=== PATIENT | female | born 1955 | race Caucasian/White ===

== ENCOUNTER 2024-06-17 06:02 | Day surgery (SDC) | payer BC ==
[~2024-06-17] VITALS: Ht 149.9 cm; Wt 43.8 kg
[~2024-06-17 06:02] MED LIST: ERGO500029 PO; LISI10TA22 PO; PHENYLEPHRINE 10% OPHTH SOL 5ML OS PRN; SYNT75TA PO
[2024-06-17] MEDS ORDERED: MIDAZOLAM INJ 2MG/2ML VIAL As Ordered ONE (06:52)
[2024-06-17] MEDS ORDERED: fentaNYL 100 MCG/2 ML INJECTION As Ordered ONE (06:52)
[2024-06-17] MEDS: PHENYLEPHRINE 2.5% OPHTH SOL 2ML OS SCH (07:50)
[2024-06-17] MEDS: TROPICAMIDE 1% OPHTH SOLN 15ML OS SCH (07:50)
[2024-06-17] MEDS: LIDOCAINE 3.5 % 1ML OPHTH TOPICAL GEL OU ONE (07:50)
[2024-06-17] MEDS: ATROPINE SULFATE 1% OPHTH SOLN 2ML BTL OS SCH (07:50)
[2024-06-17] MEDS: OFLOXACIN 0.3 % (OCUFLOX) OPTH SOL 5ML OS ONE (07:50)
[2024-06-17] MEDS: LIDOCAINE 1% SDV 5ML VIAL As Ordered ONE (08:10)
[2024-06-17] MEDS: BSS IRRIG/VANCO(10MG)/TOBRA(5MG)/EPINEPH(1:1000-0.5CC)500ML BAG-ORONLY As Ordered ONE (08:10)
[2024-06-17] MEDS: CEFUROXIME 1MG/0.1ML INTRACAMERAL INJ As Ordered ONE (08:15)
[2024-06-17 08:20] VITALS: BP 118/60; TEMP 97.4; O2SAT 98
== END 2024-06-17 08:35 | disposition home or self-care (01) ==
LOC: M SDC 06:02
PROVIDERS: ATTEND Ophthalmology
DX: H25.12 Age-related nuclear cataract, left eye (principal); I10 Essential (primary) hypertension; E03.9 Hypothyroidism, unspecified; Z79.899 Other long term (current) drug therapy; Z79.890 Hormone replacement therapy; E55.9 Vitamin D deficiency, unspecified; Z90.89 Acquired absence of other organs; Z72.0 Tobacco use
CPT/HCPCS: 66984; J0697; J2250; J3010; V2632

== ENCOUNTER 2024-07-15 10:17 | Day surgery (SDC) | payer BC ==
[~2024-07-15] VITALS: Ht 149.9 cm; Wt 43.4 kg
[~2024-07-15 10:17] MED LIST changes: +PHENYLEPHRINE 10% OPHTH SOL 5ML OD PRN; -PHENYLEPHRINE 10% OPHTH SOL 5ML OS PRN
[2024-07-15 10:28] VITALS: BP 143/69; TEMP 97.9; O2SAT 94
[2024-07-15] MEDS: TROPICAMIDE 1% OPHTH SOLN 15ML OD SCH (10:53)
[2024-07-15] MEDS: OFLOXACIN 0.3 % (OCUFLOX) OPTH SOL 5ML OD ONE (10:53)
[2024-07-15] MEDS: LIDOCAINE 3.5 % 1ML OPHTH TOPICAL GEL OU ONE (10:53)
[2024-07-15] MEDS: ATROPINE SULFATE 1% OPHTH SOLN 2ML BTL OD SCH (10:53)
[2024-07-15] MEDS: PHENYLEPHRINE 2.5% OPHTH SOL 2ML OD SCH (10:53)
[2024-07-15] MEDS ORDERED: MIDAZOLAM INJ 2MG/2ML VIAL As Ordered ONE (11:15)
[2024-07-15] MEDS ORDERED: fentaNYL 100 MCG/2 ML INJECTION As Ordered ONE (11:15)
[2024-07-15] MEDS: LIDOCAINE 1% SDV 5ML VIAL As Ordered ONE (11:45)
[2024-07-15] MEDS: BSS IRRIG/VANCO(10MG)/TOBRA(5MG)/EPINEPH(1:1000-0.5CC)500ML BAG-ORONLY As Ordered ONE (11:45)
[2024-07-15] MEDS: CEFUROXIME 1MG/0.1ML INTRACAMERAL INJ As Ordered ONE (11:51)
== END 2024-07-15 12:07 | disposition home or self-care (01) ==
LOC: M SDC 10:17 → EDUNIT# 11:15 → M SDC 12:07
PROVIDERS: ATTEND Ophthalmology
DX: H25.11 Age-related nuclear cataract, right eye (principal); I10 Essential (primary) hypertension; E03.9 Hypothyroidism, unspecified; Z79.899 Other long term (current) drug therapy; Z79.890 Hormone replacement therapy; E55.9 Vitamin D deficiency, unspecified; Z98.42 Cataract extraction status, left eye; E78.00 Pure hypercholesterolemia, unspecified; Z90.89 Acquired absence of other organs; Z72.0 Tobacco use
CPT/HCPCS: 66984; J0697; J2250; J3010; V2632